=== PATIENT | male | born 1965 | race Caucasian/White ===

== ENCOUNTER → 2016-09-21 | Day surgery (SDC) | payer OTHER ==
[~2016-09-21] MED LIST: ACET-171 PO; AMLO5TAB2 PO; ATOR20TA PO; HYDR12.55 PO; INSU100I18 SUBQ; INSU100V7 SUBQ; MULT-666 PO; OXYC-474 PO; RIFA150C2 PO; muscle relaxer PO
--- NOTE | 2016-10-20 14:16 | NUR ---
PICC line evaluation and fix: Patient arrived to [facility] [place] room 240 for IV therapy evaluation of right upper arm PICC line. Per IV therapy, PICC line fixed and functioning well. Patient discharged home in stable condition to continue with home antibiotic therapy for current back infection.
== END | disposition home or self-care (01) ==
DX: T82.898A Other specified complication of vascular prosthetic devices, implants and grafts, initial encounter (principal)